=== PATIENT | male | born 1950 | race Caucasian/White ===

== ENCOUNTER 2021-11-26 16:25 | Emergency (ER) | payer OTHER ==
[2021-11-26 17:04] LABS: HEMOGLOBIN 13.5 gm/dl (14.0-17.5); RED BLOOD COUNT 4.72 M/UL (4.20-5.50); WHITE BLOOD COUNT 12.3 K/UL (4.5-11.0)
[2021-11-26 17:36] LABS: BUN/CREATININE RATIO 9 (0-10)
[2021-11-27] MEDS ORDERED: FENOFIBRATE134 MG PO (22:20)
[2021-11-27] MEDS ORDERED: TRAZODONE HCL100 MG PO (22:23)
[2021-11-27] MEDS ORDERED: ASPIRIN81 MG PO (22:23)
[2021-11-27] MEDS ORDERED: CLARITIN10 M2 PO (22:23)
[2021-11-27] MEDS ORDERED: LOPRESSOR 50 MG50 MG PO (22:24)
[2021-11-27] MEDS ORDERED: HYDRALAZINE HCL25 MG PO (22:24)
[2021-11-27] MEDS ORDERED: LOVAZA1 GM PO (22:25)
[2021-11-27] MEDS ORDERED: HYDROCODON-ACE1 EAC1 PO (22:26)
== END 2021-11-26 20:00 | disposition home or self-care (01) ==
LOC: ER1 16:25
PROVIDERS: Emergency Medicine
DX: S05.11XA Contusion of eyeball and orbital tissues, right eye, initial encounter (principal); Z20.822 Contact with and (suspected) exposure to COVID-19; I10 Essential (primary) hypertension; E11.649 Type 2 diabetes mellitus with hypoglycemia without coma; E87.6 Hypokalemia; V89.2XXA Person injured in unspecified motor-vehicle accident, traffic, initial encounter
CPT/HCPCS: 70450; 71045; 80053; 81001; 82962; 83735; 84439; 84443; 84484; 85025; 86140; 93005; 99284; G0480; U0002

== ENCOUNTER 2021-11-27 14:14 | Observation (INO) | payer OTHER ==
[~2021-11-27] VITALS: Ht 180.3 cm; Wt 83.6 kg
[2021-11-27 15:39] LABS: HEMOGLOBIN 14.3 gm/dl (14.0-17.5); RED BLOOD COUNT 4.91 M/UL (4.20-5.50); WHITE BLOOD COUNT 12.4 K/UL (4.5-11.0)
[2021-11-27] MEDS ORDERED: FENOFIBRATE134 MG PO (22:20)
[2021-11-27] MEDS ORDERED: TRAZODONE HCL100 MG PO (22:23)
[2021-11-27] MEDS ORDERED: CLARITIN10 M2 PO (22:23)
[2021-11-27] MEDS ORDERED: ASPIRIN81 MG PO (22:23)
[2021-11-27] MEDS ORDERED: HYDRALAZINE HCL25 MG PO (22:24)
[2021-11-27] MEDS ORDERED: LOPRESSOR 50 MG50 MG PO (22:24)
[2021-11-27] MEDS ORDERED: LOVAZA1 GM PO (22:25)
[2021-11-27] MEDS ORDERED: HYDROCODON-ACE1 EAC1 PO (22:26)
[2021-11-28 06:28] LABS: HEMOGLOBIN 12.1 gm/dl (14.0-17.5); RED BLOOD COUNT 4.22 M/UL (4.20-5.50); WHITE BLOOD COUNT 8.1 K/UL (4.5-11.0)
[2021-11-28] MEDS ORDERED: FERROUS SULFAT325 MG PO (10:10)
[2021-11-28] MEDS ORDERED: DAILY-VITE TA400 MCG PO (10:11)
--- NOTE | 2021-11-28 16:29 | NUR ---
1615- NOTIFIED DR SALAZAR OF ELEVATED BLOOD PRESSURE 190/82. NEW ORDERS NOTED.
[2021-11-28] MEDS ORDERED: GLIPIZIDE10 MG PO (22:21)
[2021-11-28] MEDS ORDERED: GLUCOPHAGE 500500 MG PO (22:21)
[2021-11-28] MEDS ORDERED: LEVOTHYROXINE50 MCG PO (22:22)
[2021-11-28] MEDS ORDERED: LANTUS SOL100 UNIT/1 SQ (22:26)
[2021-11-29 10:13] LABS: CREATININE, URINE 124.4 mg/dL (Not Estab.)
[2021-11-29] MEDS ORDERED: CARVEDILOL12.5 MG PO (11:32)
[2021-11-29] MEDS ORDERED: HYDRALAZINE HCL50 MG PO (11:32)
== END 2021-11-29 12:10 | disposition home or self-care (01) ==
LOC: ER1 14:14 → CDU 17:27 → M/S 19:56
PROVIDERS: Emergency Medicine; ADMIT Internal Medicine
DX: E11.649 Type 2 diabetes mellitus with hypoglycemia without coma (principal); I10 Essential (primary) hypertension; Z88.8 Allergy status to other drugs, medicaments and biological substances; Z20.822 Contact with and (suspected) exposure to COVID-19
CPT/HCPCS: ECHO; 71045; 80048; 80053; 82043; 82570; 82962; 83036; 83880; 84439; 84443; 84484; 85025; 86140; 93005; 93306; 99285; G0378

== ENCOUNTER 2022-04-05 20:22 | Inpatient (IN) | payer OTHER ==
[~2022-04-05] VITALS: Ht 177.8 cm; Wt 86.2 kg
[~2022-04-05 20:22] MED LIST: ASPIRIN81 MG PO; CARVEDILOL12.5 MG PO; CLARITIN10 M2 PO; DAILY-VITE TA400 MCG PO; FENOFIBRATE134 MG PO; FERROUS SULFAT325 MG PO; GLIPIZIDE10 MG PO; GLUCOPHAGE 500500 MG PO; HYDRALAZINE HCL25 MG PO; HYDRALAZINE HCL50 MG PO; HYDROCODON-ACE1 EAC1 PO; LANTUS SOL100 UNIT/1 SQ; LEVOTHYROXINE125 MCG PO; LOPRESSOR 50 MG50 MG PO; LOVAZA1 GM PO; TRAZODONE HCL100 MG PO
[2022-04-05 21:00] LABS: HEMOGLOBIN 12.7 gm/dl (14.0-17.5); RED BLOOD COUNT 4.32 M/UL (4.20-5.50); WHITE BLOOD COUNT 25.4 K/UL (4.5-11.0)
[2022-04-06 06:36] LABS: HEMOGLOBIN 11.6 gm/dl (14.0-17.5); RED BLOOD COUNT 4.01 M/UL (4.20-5.50); WHITE BLOOD COUNT 20.3 K/UL (4.5-11.0)
[2022-04-06] MEDS ORDERED: BUMETANIDE1 MG PO (09:45)
[2022-04-07 04:20] LABS: HEMOGLOBIN 11.5 gm/dl (14.0-17.5); RED BLOOD COUNT 3.98 M/UL (4.20-5.50)
[2022-04-07 04:22] LABS: WHITE BLOOD COUNT 11.7 K/UL (4.5-11.0)
[2022-04-08 03:20] LABS: HEMOGLOBIN 10.5 gm/dl (14.0-17.5)
[2022-04-08 03:29] LABS: RED BLOOD COUNT 3.57 M/UL (4.20-5.50); WHITE BLOOD COUNT 17.7 K/UL (4.5-11.0)
[2022-04-08 09:12] LABS: HBSAG SCREEN Negative (Negative); HCV AB <0.1 (0.0-0.9); HEP A AB, IGM Negative (Negative); HEP B CORE AB, IGM Negative (Negative)
[2022-04-08 13:12] LABS: ANTI-DSDNA ANTIBODIES <1 IU/mL (0-9)
[2022-04-08 15:12] LABS: HEMATOCRIT 35.7 % (37.5-51.0)
[2022-04-09 02:56] LABS: HEMOGLOBIN 10.7 gm/dl (14.0-17.5); RED BLOOD COUNT 3.61 M/UL (4.20-5.50); WHITE BLOOD COUNT 17.8 K/UL (4.5-11.0)
[2022-04-09 08:14] LABS: A/G RATIO 0.6 (0.7-1.7); ALBUMIN 1.3 g/dL (2.9-4.4); ALPHA-1-GLOBULIN 0.2 g/dL (0.0-0.4); ALPHA-2-GLOBULIN 1.1 g/dL (0.4-1.0); BETA GLOBULIN 0.6 g/dL (0.7-1.3); GAMMA GLOBULIN 0.3 g/dL (0.4-1.8); GLOBULIN, TOTAL 2.3 g/dL (2.2-3.9); IMMUNOGLOBULIN A, QN, SERUM 215 mg/dL (61-437); IMMUNOGLOBULIN G, QN, SERUM 385 mg/dL (603-1613); IMMUNOGLOBULIN M, QN, SERUM 16 mg/dL (15-143); M-SPIKE Not Observed g/dL (Not Observed); PROTEIN, TOTAL, SERUM 3.6 g/dL (6.0-8.5)
[2022-04-09 10:14] LABS: CREATININE, URINE 76.3 mg/dL (Not Estab.)
[2022-04-09 21:07] LABS: ANTIMYELOPEROXIDASE (MPO) ABS <0.2 units (0.0-0.9); ANTIPROTEINASE 3 (PR-3) ABS <0.2 units (0.0-0.9); ATYPICAL PANCA <1:20 titer (Neg:<1:20); CYTOPLASMIC (C-ANCA) <1:20 titer (Neg:<1:20); PERINUCLEAR (P-ANCA) <1:20 titer (Neg:<1:20)
[2022-04-10 03:21] LABS: HEMOGLOBIN 10.7 gm/dl (14.0-17.5); RED BLOOD COUNT 3.61 M/UL (4.20-5.50); WHITE BLOOD COUNT 13.9 K/UL (4.5-11.0)
[2022-04-10 17:11] LABS: QUANTIFERON MITOGEN VALUE >10.00 IU/mL (.); QUANTIFERON NIL VALUE 0.06 IU/mL (.); QUANTIFERON TB1 AG VALUE 0.03 IU/mL (.); QUANTIFERON TB2 AG VALUE 0.02 IU/mL (.); QUANTIFERON-TB GOLD PLUS Negative (Negative)
[2022-04-11 04:34] LABS: HEMOGLOBIN 10.8 gm/dl (14.0-17.5); RED BLOOD COUNT 3.67 M/UL (4.20-5.50)
[2022-04-11 04:49] LABS: WHITE BLOOD COUNT 10.2 K/UL (4.5-11.0)
[2022-04-12 03:08] LABS: HEMOGLOBIN 11.1 gm/dl (14.0-17.5); RED BLOOD COUNT 3.73 M/UL (4.20-5.50); WHITE BLOOD COUNT 8.2 K/UL (4.5-11.0)
[2022-04-13 06:52] LABS: HEMOGLOBIN 10.8 gm/dl (14.0-17.5); RED BLOOD COUNT 3.65 M/UL (4.20-5.50); WHITE BLOOD COUNT 8.6 K/UL (4.5-11.0)
--- NOTE | 2022-04-13 17:16 | NUR ---
spoken with dr. nation of patient medications, lab results and patient nervousness-acknowledged
[2022-04-14 03:45] LABS: RED BLOOD COUNT 3.45 M/UL (4.20-5.50); WHITE BLOOD COUNT 10.6 K/UL (4.5-11.0)
--- NOTE | 2022-04-14 16:22 | NUR ---
spoken with dr. aiken and informed hime of dr. díaz request for aspiring.
[2022-04-14] MEDS ORDERED: CATAPRES 0.1MG0.1 MG PO (17:14)
[2022-04-14] MEDS ORDERED: ALDACTONE 25MG25 MG PO (17:14)
[2022-04-14] MEDS ORDERED: LANTUS INS100 UTS/M1 SQ (17:14)
[2022-04-14] MEDS ORDERED: EDECRIN 25 MG T25 MG PO (17:14)
[2022-04-14] MEDS ORDERED: HUMALOG 10100 UNITS/ SC ×2 (17:14→17:54)
[2022-04-14] MEDS ORDERED: PROTONIX 40 MG40 M1 PO (17:14)
--- NOTE | 2022-04-14 17:59 | NUR ---
ok to give edecrin to patient upon d/c to take home this evening for pharmacy is close. this instructions received from dr. aiken.
--- NOTE | 2022-04-14 18:32 | NUR ---
gave ethacrynic medicatin as instructed by dr. aiken to patient's daughter (RN).
== END 2022-04-14 18:32 | disposition home or self-care (01) | DRG 682 ==
LOC: ER1 20:22 → PROG CARE 22:33 → M/S 22:33 → CDU 22:33 → PROG CARE 04-06 03:51 → M/S 04-06 14:40
PROVIDERS: Emergency Medicine; Internal Medicine; Internal Medicine Hematology & Oncology; Internal Medicine Nephrology; Registered Nurse; ADMIT Internal Medicine
PROC: B24BZZZ Ultrasonography of Heart with Aorta (ICD-10-PCS; principal; 2022-04-06)
DX: N17.9 Acute kidney failure, unspecified (principal); I50.33 Acute on chronic diastolic (congestive) heart failure; I13.0 Hypertensive heart and chronic kidney disease with heart failure and stage 1 through stage 4 chronic kidney disease, or unspecified chronic kidney disease; R18.8 Other ascites; N00.9 Acute nephritic syndrome with unspecified morphologic changes; E87.6 Hypokalemia; E83.42 Hypomagnesemia; E11.22 Type 2 diabetes mellitus with diabetic chronic kidney disease; D64.9 Anemia, unspecified; N18.32 Chronic kidney disease, stage 3b; D72.12 Drug rash with eosinophilia and systemic symptoms syndrome; Z98.890 Other specified postprocedural states; Z88.8 Allergy status to other drugs, medicaments and biological substances; Z85.46 Personal history of malignant neoplasm of prostate; Z87.891 Personal history of nicotine dependence; Z90.89 Acquired absence of other organs; Z79.899 Other long term (current) drug therapy; Z79.4 Long term (current) use of insulin; Z79.82 Long term (current) use of aspirin; Z68.28 Body mass index [BMI] 28.0-28.9, adult
CPT/HCPCS: ECHO; 36415; 71045; 71250; 80048; 80053; 80061; 80074; 81001; 82043; 82436; 82550; 82553; 82570; 82607; 82728; 82747; 82784; 82962; 83036; 83520; 83540; 83550; 83615; 83735; 83880; 84100; 84133; 84155; 84156; 84165; 84300; 84439; 84443; 84484; 85025; 85027; 85610; 85652; 85730; 86038; 86140; 86225; 86256; 86334; 86682; 89050; 93005; 93306; 96374; 96375; 99285; J1200; J1644; J1940; J2920; J2930; J3475; J7070; U0002